=== PATIENT | female | born 1970 | race Caucasian/White ===

== ENCOUNTER 2017-03-01 23:19 | Emergency (ER) | payer SELFPAY | END 2017-03-02 00:40 | disposition home or self-care (01) | LOC: ER 23:19 | DX: M25.551 Pain in right hip (principal); G89.29 Other chronic pain; I10 Essential (primary) hypertension; M41.9 Scoliosis, unspecified; W19.XXXA Unspecified fall, initial encounter | CPT/HCPCS: 72170; 73502-RT; 73700-LT; 96374; 96375; 96376; 99284; J2360; J2405 ==